=== PATIENT | female | born 2000 | race Hispanic/Latino ===

== ENCOUNTER 2020-01-13 14:03 | Emergency (ER) | payer BC ==
[~2020-01-13] VITALS: Ht 167.6 cm; Wt 87.1 kg
[2020-01-13] MEDS ORDERED: ONDANSETRON HCL INJ 2MG/ML 2ML 2 MG/ML VIAL ONE (14:37)
[2020-01-13] MEDS ORDERED: SODIUM CHLORIDE 0.9% 1000ML 1,000 ML ONE (14:38)
[2020-01-13] MEDS ORDERED: ONDANSETRON HCL INJ 2MG/ML 2ML 2 MG/ML VIAL IV STA (14:58)
[2020-01-13] MEDS ORDERED: SODIUM CHLORIDE 0.9% 1000ML 1,000 ML IV ONE ×2 (15:00→15:45)
[2020-01-13] MEDS ORDERED: DIAZEPAM INJ 5 MG/ML 2 ML IV ONE (15:00)
[2020-01-13] MEDS ORDERED: SODIUM CHLORIDE 0.9% 1000ML 1,000 ML IV SCH (15:45)
[2020-01-13] MEDS ORDERED: SODIUM CHLORIDE 0.9% 100 ML ONE (17:13)
[2020-01-13] MEDS ORDERED: PROMETHAZINE HCL (IM) 25 MG/ML VIAL IM ONE (17:13)
[2020-01-13] MEDS ORDERED: PROMETHAZINE 12.5MG/ NACL 0.9% 12.5 MG/50 ML BAG IV ONE (17:15)
[2020-01-13] MEDS ORDERED: ONDANSETRON ODT8 MG PO (17:27)
[2020-01-13] MEDS ORDERED: MECLIZINE HCL12.5 MG PO (17:28)
== END 2020-01-13 17:36 | disposition home or self-care (01) ==
LOC: FSED 14:10
DX: R42 Dizziness and giddiness (principal); R11.2 Nausea with vomiting, unspecified; E86.0 Dehydration; D72.829 Elevated white blood cell count, unspecified; R73.9 Hyperglycemia, unspecified
CPT/HCPCS: 80048; 80076; 81003; 81025; 85025; 87400; 99284; J2405; J2550; J3360; J7030; J7050